=== PATIENT | male | born 1970 | race American Indian/Alaskan Native ===

== ENCOUNTER 2020-11-21 06:53 | Day surgery (SDC) | payer BC ==
[2020-11-20 10:32] VITALS: BMI 26.5
[2020-11-21] MEDS ORDERED: Levofloxacin 500 mg/D5W 100 ml Premix Bag ONE (07:31)
[2020-11-21] MEDS ORDERED: ePHEDrine 50 MG/ML VIAL ONE (09:02)
[2020-11-21] MEDS ORDERED: Lidocaine 1% PF 5 ML VIAL ONE (09:02)
[2020-11-21] MEDS ORDERED: Ondansetron PF 4 MG/2 ML Vial ONE (09:02)
[2020-11-21] MEDS ORDERED: PROPOFOL 200 MG/20 ML VIAL ONE (09:02)
[2020-11-21] MEDS ORDERED: Fentanyl 100 MCG/2 ML VIAL ONE (09:05)
[2020-11-21] MEDS ORDERED: Phenazopyridine HCl 100 MG TAB ONE (10:09)
[2020-11-21] MEDS ORDERED: Oxybutynin 5 MG TAB ONE (10:09)
== END 2020-11-21 12:55 | disposition home or self-care (01) ==
LOC: SDC 06:53
PROVIDERS: ATTEND Urology
PROC: 0T7D8DZ Dilation of Urethra with Intraluminal Device, Via Natural or Artificial Opening Endoscopic (ICD-10-PCS; principal; 2020-11-21)
DX: N40.1 Benign prostatic hyperplasia with lower urinary tract symptoms (principal); N13.8 Other obstructive and reflux uropathy; N32.89 Other specified disorders of bladder; I25.10 Atherosclerotic heart disease of native coronary artery without angina pectoris; E78.00 Pure hypercholesterolemia, unspecified; I10 Essential (primary) hypertension; R35.0 Frequency of micturition; Z79.02 Long term (current) use of antithrombotics/antiplatelets; Z79.82 Long term (current) use of aspirin; Z79.899 Other long term (current) drug therapy; Z95.5 Presence of coronary angioplasty implant and graft
CPT/HCPCS: J1956; J2405; J2704; J3010; J3490; L8699

== ENCOUNTER 2021-01-29 08:59 | Outpatient (CLI) | payer BC | END 2021-01-29 09:00 | disposition home or self-care (01) | LOC: NM 08:59 | PROVIDERS: ATTEND Specialist | DX: E21.3 Hyperparathyroidism, unspecified (principal); J38.01 Paralysis of vocal cords and larynx, unilateral | CPT/HCPCS: 78072; A9500 ==